=== PATIENT | female | born 1950 | race Caucasian/White ===

== ENCOUNTER 2017-03-02 12:39 | Emergency (ER) | payer MEDICARE, MEDICAID ==
[~2017-03-02] VITALS: Ht 157.5 cm; Wt 60.1 kg
[~2017-03-02 12:39] MED LIST: ASPI325T17 PO; CALC3.7S5 NAS; CARB1TAB2 PO; DEXA4TAB PO; OXYC1TAB7 PO
[2017-03-02 12:44] VITALS: BP 121/65
== END 2017-03-02 14:41 | disposition home or self-care (01) ==
LOC: ED 14:35
DX: S62.347A Nondisplaced fracture of base of fifth metacarpal bone, left hand, initial encounter for closed fracture (principal); S50.812A Abrasion of left forearm, initial encounter; G20 Parkinson's disease; M81.0 Age-related osteoporosis without current pathological fracture; F17.200 Nicotine dependence, unspecified, uncomplicated; Z90.710 Acquired absence of both cervix and uterus; W01.0XXA Fall on same level from slipping, tripping and stumbling without subsequent striking against object, initial encounter; Y93.89 Activity, other specified; Y92.098 Other place in other non-institutional residence as the place of occurrence of the external cause; Y99.8 Other external cause status
CPT/HCPCS: 29125

== ENCOUNTER 2019-07-04 12:49 | Emergency (ER) | payer MEDICARE, MEDICAID ==
[~2019-07-04] VITALS: Ht 154.9 cm; Wt 60.0 kg
[2019-07-04 12:53] VITALS: BP 175/88
[2019-07-04] MEDS ORDERED: OXYcodone/APAP 5/325MG TABLET ONE (14:21)
[2019-07-04] MEDS ORDERED: OXYcodone/APAP 5/325MG TABLET PO ONE (14:30)
[2019-07-04 14:50] LABS: BASOPHILS # (AUTO) 0.12 x10^3/uL (0-0.1); BASOPHILS % (AUTO) 1 % (0-1); EOSINOPHILS # (AUTO) 0.25 x10^3/uL (0-0.4); EOSINOPHILS % (AUTO) 2 % (1-7); LYMPHOCYTES # (AUTO) 1.51 x10^3/uL (1-3.4); LYMPHOCYTES % (AUTO) 13 % (22-44); MD NO; MEAN CORPUSCULAR HEMOGLOBIN 31.3 pg (27.0-34.8); MEAN CORPUSCULAR VOLUME 97.7 fL (80-100); MEAN PLATELET VOLUME 7.8 fL (7.4-10.4); MONOCYTES # (AUTO) 1.36 x10^3/uL (0.2-0.8); MONOCYTES % (AUTO) 12 % (2-9); NEUTROPHILS # (AUTO) 8.55 x10^3/uL (1.8-6.8); NEUTROPHILS % (AUTO) 73 % (42-75); PLATELET COUNT 223 x10^3/uL (130-400); RED BLOOD COUNT 3.49 x10^6/uL (3.82-5.3); RED CELL DISTRIBUTION WIDTH 15.4 % (9.6-15.2)
[2019-07-04 15:02] LABS: ANION GAP 7 mmol/L (5-15); CALCIUM 7.3 mg/dL (8.5-10.1); CHLORIDE 119 mmol/L (98-107); CREATININE 2.11 mg/dL (0.55-1.02)
== END 2019-07-04 15:37 | disposition home or self-care (01) ==
LOC: ED 14:07
DX: J15.9 Unspecified bacterial pneumonia (principal); E03.9 Hypothyroidism, unspecified; Z90.710 Acquired absence of both cervix and uterus; Z90.49 Acquired absence of other specified parts of digestive tract; Z87.891 Personal history of nicotine dependence
CPT/HCPCS: 36415; 71046; 80048; 85025; 93005; 99284

== ENCOUNTER 2019-07-10 00:59 | Emergency (ER) | payer MEDICARE, MEDICAID ==
[~2019-07-10] VITALS: Ht 165.1 cm; Wt 58.0 kg
[2019-07-10 01:04] VITALS: BP 151/93
--- NOTE | 2019-07-10 01:10 | NUR ---
FLOOR FRAMER: PT REFUSED EKG
--- NOTE | 2019-07-10 01:50 | NUR ---
PT TO RAD AT THIS TIME.
[2019-07-10 01:56] LABS: BASOPHILS # (AUTO) 0.03 x10^3/uL (0-0.1); BASOPHILS % (AUTO) 0 % (0-1); EOSINOPHILS # (AUTO) 0.21 x10^3/uL (0-0.4); EOSINOPHILS % (AUTO) 2 % (1-7); LYMPHOCYTES # (AUTO) 1.62 x10^3/uL (1-3.4); LYMPHOCYTES % (AUTO) 17 % (22-44); MD NO; MEAN CORPUSCULAR HEMOGLOBIN 32.1 pg (27.0-34.8); MEAN CORPUSCULAR HGB CONC 32.9 g/dL (32.4-35.8); MEAN CORPUSCULAR VOLUME 97.6 fL (80-100); MEAN PLATELET VOLUME 7.8 fL (7.4-10.4); MONOCYTES # (AUTO) 0.98 x10^3/uL (0.2-0.8); MONOCYTES % (AUTO) 10 % (2-9); NEUTROPHILS % (AUTO) 71 % (42-75); PLATELET COUNT 273 x10^3/uL (130-400); RED BLOOD COUNT 3.39 x10^6/uL (3.82-5.3); RED CELL DISTRIBUTION WIDTH 15.4 % (9.6-15.2)
[2019-07-10] MEDS ORDERED: KETOROLAC 30 MG/1 ML ONE ×2 (01:58→04:10)
[2019-07-10] MEDS ORDERED: MORPHINE SULFATE 4 MG/ML, 1ML ONE ×2 (01:58→04:11)
[2019-07-10] MEDS ORDERED: MORPHINE SULFATE 4 MG/ML, 1ML IVPush PRN (02:00)
[2019-07-10] MEDS ORDERED: SODIUM CHLORIDE FLUSH 10ML SYR IVF ONE ×2 (02:00→04:30)
[2019-07-10] MEDS ORDERED: KETOROLAC 30 MG/1 ML IVPush ONE (02:00)
[2019-07-10 02:05] LABS: ALANINE AMINOTRANSFERASE 7 U/L (12-78); ALBUMIN 3.1 g/dL (3.4-5.0); ANION GAP 8 mmol/L (5-15); CALCIUM 7.3 mg/dL (8.5-10.1); CHLORIDE 113 mmol/L (98-107); CREATININE 1.64 mg/dL (0.55-1.02)
[2019-07-10 02:09] LABS: ALKALINE PHOSPHATASE 129 U/L (45-117); BILIRUBIN,TOTAL 0.3 mg/dL (0.2-1.0); TOTAL PROTEIN 6.4 g/dL (6.4-8.2); TROPONIN I < 0.015 ng/mL (0.000-0.045)
[2019-07-10] MEDS ORDERED: OXYcodone/APAP 5/325MG TABLET ONE (02:10)
--- NOTE | 2019-07-10 02:14 | NUR ---
POC DISCUSSED. PT STATES SHE WILL ONLY ALLOW ONE IV ATTEMPT. ONE IV ATTEMPTED WITHOUT SUCCESS. PT REQUESTING TO SWITCH PAIN MEDICINE TO PO. PT REQUESTING PERCOCET. INFORMED. PT MEDICATED WITH PERCOCET.
[2019-07-10] MEDS ORDERED: OXYcodone/APAP 5/325MG TABLET PO ONE (02:30)
--- NOTE | 2019-07-10 02:48 | NUR ---
Pt reporting pain. Pt repositioned self. Pt brought warm blanket and pillow. Call light remains within reach.
--- NOTE | 2019-07-10 02:57 | NUR ---
Pt to imaging
--- NOTE | 2019-07-10 04:21 | NUR ---
Pt medicated per SEP. Pt on all monitors. Call light within reach.
--- NOTE | 2019-07-10 04:27 | NUR ---
AT BEDSIDE DISCUSSING POC. MD INFORMED PT SHE NEEDS AN ABD CT. PT REFUSING AND STATES SHE WANTS TO LEAVE. PT WAS EXPLAINED THE X RAY FINDINGS AND THE CRITICAL NATURE OF HIS CONDITION. PT TOOK MUCH CONVINCING HOWEVER IS NOW AGREEABLE TO CT. REASSURANCE GIVEN. PT DENIES FURTHER NEEDS AT THIS TIME.
[2019-07-10] MEDS ORDERED: SODIUM CHLORIDE 0.9% 1,000ML IVBOLUS ONE (04:30)
--- NOTE | 2019-07-10 04:55 | NUR ---
Pt to imaging.
--- NOTE | 2019-07-10 05:02 | NUR ---
pt returned from ct at this time.
--- NOTE | 2019-07-10 05:06 | NUR ---
pt refused CT.
--- NOTE | 2019-07-10 05:15 | NUR ---
Pt alert and oriented and resting on gurney. Pt reports she is "chicken shit" and will follow-up with her doctor. Pt educated on need for further tests and possible treatments. Pt educated on potential risks to health and life if she refuses further work-up. Pt continues to decline CT and further eval. Pt stating she wants to go home. AMA paperwork signed. Pt's Tay called and will come get pt.
--- NOTE | 2019-07-10 05:30 | NUR ---
Pt sitting in own wheelchair putting on shoes. Discharge teaching provided and pt encouraged again to stay and seek further tx. Pt continues to decline. Pt dc'd to self care.
== END 2019-07-10 05:39 | disposition home or self-care (01) ==
LOC: ED 01:48
DX: K59.00 Constipation, unspecified (principal); R06.00 Dyspnea, unspecified; Z90.89 Acquired absence of other organs; Z90.710 Acquired absence of both cervix and uterus; Z87.891 Personal history of nicotine dependence; Z72.9 Problem related to lifestyle, unspecified; Z86.39 Personal history of other endocrine, nutritional and metabolic disease
CPT/HCPCS: 36415; 71046; 74021; 80053; 83880; 84484; 85025; 93005; 96374; 96375; 99284; J1885; J2270; J7030; 99283